=== PATIENT | male | born 1940 | race Caucasian/White ===

== ENCOUNTER 2016-08-20 01:21 | Day surgery (SDC) | payer MEDICARE, OTHER ==
[2016-08-20] VITALS (14 sets, daily range): BP systolic 113–145; BP diastolic 66–91; PULSE 60–62; RESP 10–20; O2SAT 93–96
[~2016-08-20] VITALS: Ht 180.3 cm; Wt 110.5 kg
[~2016-08-20 01:21] MED LIST: ASPI325T32 PO; CYAN1TAB52 SL; FEXO-106 PO; FLUT30CR10 TOP; FLUT9.9S NS; FURO-129 PO; LIP40 PO; LISI1TAB7 PO; MULT1CAP33 PO; NITR0.4T SL; POTA10TA12 PO
[2016-08-20] MEDS ORDERED: Bupivacaine-MPF 0.5% 30 mL Inj ONE (09:08)
[2016-08-20] MEDS ORDERED: 0.9% Sodium Chloride 250 ML ONE (09:08)
[2016-08-20] MEDS ORDERED: Heparin 5,000 Units/500 mL NS Premix IV ONE (09:08)
[2016-08-20 09:19] LABS: BASOPHILS % (AUTO) 0.3 % (0-3); EOSINOPHILS % (AUTO) 2.2 % (0-5); MONOCYTES % (AUTO) 11.8 % (4-12); Mean Corpuscular Hemoglobin 32.8 pg (27.0-35.0); Mean Corpuscular Volume 97.2 fL (81-100); NEUTROPHILS % (AUTO) 60.4 % (40-74); Platelet Count 211 bil/L (150-400)
[2016-08-20 09:35] LABS: INR 0.94 ratio
[2016-08-20] MEDS ORDERED: MECO5000 PO (09:44)
[2016-08-20] MEDS ORDERED: ERGO2000 PO (09:44)
[2016-08-20] MEDS ORDERED: [UNRECOGNIZED DRUG - OTHER] NASAL (09:46)
[2016-08-20] MEDS ORDERED: CeFAZolin 2 Gm/50 mL D5W Duplex Bag IV ONE (09:56)
[2016-08-20] MEDS ORDERED: fentaNYL-PF 50 mCg/mL 2 mL Inj ONE ×2 (10:41→11:15)
[2016-08-20] MEDS ORDERED: 0.9% Sodium Chloride 1,000 ML IV SCH (12:49)
[2016-08-20] MEDS ORDERED: Ondansetron 2 mg/mL 2 mL Inj IVPUSH PRN (12:50)
[2016-08-20] MEDS ORDERED: HYDROcodone-APAP 5-325 mg Tablet PO PRN (12:50)
--- NOTE | 2016-08-20 14:42 | DRSVH ---
PROCEDURE: X-RAY CHEST ONE VIEW, PORTABLE ([id number]) INDICATIONS: For new leads placed TECHNIQUE: One view of the chest was acquired. COMPARISON: [facility], , CHEST 2 VIEW, 12/13/2015, 15:22. FINDINGS: Surgical changes and devices: There has been interval placement of pacemaker. Lungs and pleura: No pleural effusions or pneumothorax. Lungs are clear. Mediastinum: Mediastinal contours appear normal. Heart size is normal. Bones and chest wall: No suspicious bony lesions. Overlying soft tissues appear unremarkable. IMPRESSION: No acute pulmonary process. Dictated by: Latasha Umaña M.D. on 08/20/2016 at 14:40 Approved by: Latasha Umaña M.D. on 08/20/2016 at 14:40
--- NOTE | 2016-08-20 15:13 | NUR ---
Pt complains of heartburn, says he gets this occassionally and "waits it out". Pt had heart cath last Apr. per report he has mild disease. Will ask Dr Lares for maalox or pepcid if heartburn does not imminently resolve. Report to Angelia springer R.N. Ice pack in place.
[2016-08-20] MEDS ORDERED: Alum-Mag Hydrox-Simeth 30 mL Suspension ONE (15:40)
[2016-08-20] MEDS: 0.9% Sodium Chloride 1,000 ML IV SCH ×2 (16:00→16:01)
--- NOTE | 2016-08-20 16:28 | NUR ---
Admit [facility] Pt arrived on [facility] at approx 1615 accompanied by family with all belongings. Pt is SL, on RA, and SBA until we see him ambulate. VS stable and A-paced 61 per technical specialist. Pt is reporting ongoing chest pain 12/18 that he was given Maalox approx 45 mins ago, Dr Lares is aware. Continuing to monitor.
--- NOTE | 2016-08-20 16:40 | NUR ---
Transferred up to room 3025 post pacemaker placement today by Dr Lares. Recovery is completed is TEODORA - 12 lead and PCXR. Prior to transfer patient complained of arm pain and was given plain Tylenol by admitting RN Shi Branch. Patient mentioned he was having anterior upper gastric discomfort placing it at a 2/10 - Dr Lares informed and OK to receive Mylanta 30cc. Following transfer to the floor patient felt the upper gastric discomfort >5/10 from the 09/20. Dr Lares notified - Limited echo ordered. RN for room 3025 was notified regarding order that was ordered by [facility] attendance secretary - requested limited echo now.
[2016-08-20] MEDS: CeFAZolin Inj 1 GM in IV Premix 1 EACH IV SCH (18:00)
--- NOTE | 2016-08-20 18:14 | DRSVH ---
[facility] [address] [place] [address] Echocardiogram Report Name: EVELINE ARELLANOudgaudencio Alon e: 08/20/2016 Height: 71 in Hospital Exam Location: [facility] Weight: 244 lb Gender: Other BSA: 2.3 m2 : 1940 Age: 76 yrs BP: 145/85 mm Hg Reason For Study: EVAL FOR POSSIBLE SHELLIE. EFF. CHEST PAIN Ordering Physician: Dr. Adalid Lares Performed By: Kori Sinclair Referring Physician: Dr. Perfecto Coronado Interpretation Summary 1. Grossly normal left ventricular size and systolic function. 2. Normal right ventricular systolic function. A pacer lead is appreciated in the right ventricle 3. No pericardial effusion is appreciated. Procedure: This is a limited echocardiogram to evaluate for possible pericardial effusion s/p pacemaker implant and chest pain. The study quality was technically adequate. Left Ventricle: The left ventricular ejection fraction is grossly normal. Right Ventricle: The right ventricle is normal in size and function. There is a pacemaker lead in the right ventricle. Aortic Valve: The aortic valve is trileaflet. The aortic valve opens well. Pericardium/ Pleura There is no pericardial effusion. Reading Physician:06:13 PM
--- NOTE | 2016-08-20 23:33 | OP ---
[address] [address] OPERATIVE REPORT PATIENT: EVELINE ARELLANO : 1940 MR#: [id number] ADMIT: 08/20/2016 JOB ID: [id number] DATE OF SURGERY: 08/20/2016 PREOPERATIVE DIAGNOSIS(ES): Sick sinus syndrome. POSTOPERATIVE DIAGNOSIS(ES): Sick sinus syndrome. PROCEDURES PERFORMED: 1. Dual-chamber pacemaker implantation. 2. Right upper extremity venogram. 3. Fluoroscopy. SURGEON: Diaz Lares MD [employer]ING [employer] FILLING MACHINE OPERATOR: Elma Danielle MD, intervention cardiology attending. ANESTHESIA: Bolus dosing of Versed and fentanyl were utilized for an appropriate level of sedation. IMPLANTED DEVICES: 1. [employer] pulse generator, model KF1948, serial number [id number]. 2. Right atrial lead, [employer] 2088CC, 46 cm, serial number [id number]. 3. RV lead [employer] 2088CC, 52 cm, serial number [id number]. INDICATIONS: The patient is a pleasant 76-year-old man with preserved LV function and clear sick sinus syndrome with near syncope and pauses greater than three seconds. He also has chronotropic incompetence. After discussion of risks and benefits of pacemaker implantation, he opted to proceed. PROCEDURAL DESCRIPTION: Following informed consent, the patient was taken to the EP laboratory in a fasting nonsedated state, where he was prepped and draped in the usual sterile fashion. The right deltopectoral region was infiltrated with 40 cc of a 50/50 mixture of bupivacaine and lidocaine. Once adequate anesthesia had been achieved, a 3-cm incision was performed, 2 cm middle medial to the right deltopectoral groove. Dissection was carried down to the pectoralis fascia, and a pocket was then fashioned using a combination of electrocautery and blunt dissection. Once adequate hemostasis had been achieved, a right upper extremity venogram was performed under venographic guidance. The right axillary vein was cannulated over the first rib twice with a micropuncture needle to deploy two 0.035 mm J guidewires. Over the first of these, a 6-Khmer tear-away sheath was advanced. Once the guidewire was removed, an active fixation lead was advanced to the RV outflow tract, ultimately to the RV apex. The lead was affixed in position. Using its associated active fixation screw, the lead was connected to the external analyzer and demonstrated appropriately sensed R waves, impedance, capture threshold. Lead was checked to 10 V, and there was no evidence of diaphragmatic stimulation. Attention was now paid to placement of the right atrial lead. Over the other previously deployed J guidewire, another 6-Khmer tear-away sheath was advanced. Once the guidewire was removed, an active fixation lead was advanced to the right atrial appendage. Mapping was undertaken in the appendage extensively with overall poor threshold. The lead was placed in the low lateral right atrium. It was affixed in position using associated fixation screw. The lead was connected to the external analyzer and demonstrated appropriately sensed P waves, impedance, capture threshold. Lead was checked to 10 V, and there was no evidence of diaphragmatic stimulation. Once the position and redundancy of both leads had been confirmed in multiple fluoroscopic views, the leads were anchored to the prepectoralis fascia. Using their associated anchoring sleeves and Ethibond sutures, the pocket was copiously then irrigated with warm saline solution. The leads were connected to a generator. The generator was placed in the pocket. It was affixed to the floor of the pocket using 1-0 Ti.Cron suture. The incision was then closed with running layers of absorbable suture. The wound was dressed with skin adhesive and a small dressing. At the end of the procedure, the needle, sponge, instrument counts were all correct. COMPLICATIONS: None. ESTIMATED BLOOD LOSS: Negligible. DEVICE MEASURED DATA: 1. showed a 5 mV, 560 ohms, 0.75 V at 0.4 msec. 2. lead 8.2 mV, 530 ohms, 0.5 V at 0.4 msec. FINAL PROGRAM PARAMETERS: DDDR 60-130 beats per minute. IMPRESSION: Successful dual-chamber pacemaker implantation. PLAN: 1. Stat portable chest x-ray. 2. PA and lateral chest x-ray in the morning. 3. Device interrogation. 4. IV Ancef through tomorrow, then Keflex times seven days . 5. Wound check in one week. ATTENDING STATEMENT: Diaz Lares MD, electrophysiology MD, electrophysiology attending, was present for and supervised/performed all aspects of this procedure.
[2016-08-21 00:20] VITALS: BP 168/90; PULSE 70; RESP 18; O2SAT 96
[2016-08-21] MEDS: CeFAZolin Inj 1 GM in IV Premix 1 EACH IV SCH (01:40)
[2016-08-21 05:09] VITALS: BP 138/83; PULSE 60; RESP 18; O2SAT 96
[2016-08-21] MEDS ORDERED: CeFAZolin 2 Gm/50 mL D5W IV Premix IV ONE (06:00)
--- NOTE | 2016-08-21 06:05 | NUR ---
Pain/NOC Shift: Pt c/o generalized surgical site pain 11/18, medication administered; effective. Pt denied SOB. Slept most of the night, pleasant and cooperative with care.
--- NOTE | 2016-08-21 06:40 | NUR ---
off floor for procedure.
--- NOTE | 2016-08-21 06:50 | NUR ---
Pt back on floor
--- NOTE | 2016-08-21 08:04 | DRSVH ---
PROCEDURE: X-RAY CHEST, TWO VIEWS ([id number]) INDICATIONS: For new lead placement TECHNIQUE: 2 views of the chest were acquired. COMPARISON: [facility], CR, XR CHEST 1VW (PORTABLE), 08/20/2016, 12:59. FINDINGS: Surgical changes and devices: Dual chamber cardiac pacer stable in appearance. Lungs and pleura: No pleural effusions or pneumothorax. Lungs are clear. Mediastinum: Mediastinal contours are normal. Heart size is normal. Bones and chest wall: No suspicious bony abnormalities. Soft tissues appear unremarkable. IMPRESSION: No acute cardiopulmonary disease process. Dictated by: Nora Tan MD, PhD on 08/21/2016 at 8:02 Approved by: Nora Tan MD, PhD on 08/21/2016 at 8:02
[2016-08-21] MEDS ORDERED: Fluticasone 0.05% 15 Spray/2 Gm 16 Gm Nasal Spray NASAL SCH (08:30)
--- NOTE | 2016-08-21 10:05 | PCM.DIMED ---
Discharge Instructions Date of Service Aug 21, 2016 Dates of Hospitalization Discharge Diagnosis Discharge Diagnosis Sick Sinus Syndrome Chronotropic Incompetence Sleep Apnea Hypertension Diet Heart Healthy Activity Other (Keep incision dry one day. Do not extend right elbow high above right shoulder for one month. Do not lift, push or pull more than 10 lbs with the right arm for 1 month) Call your provider Fever or Chills, Bleeding, Excessive diarrhea Patient Instructions Follow-up in: 1 week Mid-level Provider (F9): Robbin Aponte PA-C Follow-up with Mid-level in: 6 weeks Robbin Aponte PA-C Aug 21, 2016 10:05
[2016-08-21] MEDS ORDERED: CEPH500C PO (10:07)
--- NOTE | 2016-08-21 11:02 | NUR ---
Discharge Patient discharge to home at 1102h. Charge nurse explained to patient new medication, when next medications are due, and discharge instructions. Patient verbalized understanding. Dc'd IV intact by charge nurse. Dc'd telemetry. vitals stable. Patient left floor on own two feet accompanied by family with no signs of distress.
--- NOTE | 2016-08-21 11:20 | NUR ---
Social Work-screening/discharge: SW attempted to see pt, but updated by RN that pt has been discharged. Pt has been up indepedent in his room. No discharge needs identified. All updated and agreeable to plan. RISHI Rdz
--- NOTE | 2016-08-21 11:42 | DIS ---
[address] [address] DISCHARGE SUMMARY PATIENT: EVELINE ARELLANO : 1940 MR#: [id number] ADMIT: 08/20/2016 JOB ID: [id number] DIS: 08/21/2016 REASON FOR ADMISSION: Pacemaker implant. CHIEF COMPLAINT: Lightheadedness and exertional dyspnea. BRIEF HISTORY: The patient is a pleasant 76-year-old man with preserved biventricular function and nonobstructive CAD who has significant bradycardia. He complains of exertional dyspnea with mild to moderate exertion and some chest pain. He also gets lightheaded with exertion. He recently wore a quality assurance monitor that revealed sinus rhythm, with a minimum rate of 29 beats per minute, average of 50 and maximum rates only in the 80s. He is off any rate-slowing medication or AV node medications, and he has also been observed to have sinus pauses up to 4 seconds. He was advised of the benefits of a pacemaker to maintain normal rhythm and wished to proceed with that. COURSE IN HOSPITAL: The patient was brought in through the [facility] and taken to the catheterization laboratory, where he underwent the pacemaker implant procedure without incident. He was then taken back to the [facility] for recovery from sedation and then transferred up to the third floor [facility] for overnight monitoring. In the morning he felt well and had no complaints other than minor discomfort at the pacemaker site. The site is closed and dry. There is no significant hematoma. Chest x-ray shows good lead positions and no pneumothorax. Pacemaker evaluation shows excellent capture and sensing thresholds. He was observed to have a junctional rhythm in the 60s and 70s and so, the pacemaker rate was increased to 70. Also, he has retrograde conduction and was having pacemaker-mediated tachycardia, so the PVARP was extended to 350 msec. He felt well for discharge home. He was not having any complaints of lightheadedness or any difficulty walking. DISPOSITION: The patient was discharged home in good condition with a followup appointment at the [facility] office in one week. He was asked to not extend his right arm high above his right shoulder for one month and not to lift, push, or pull more than 10 pounds with the right arm. He has a right-sided implant because he likes to shoot a rifle against his left shoulder. He will follow a heart healthy diet and take medications as prescribed. DISCHARGE MEDICATIONS: 1. Cephalexin 500 mg b.i.d. 2. Aspirin 325 mg daily. 3. Atorvastatin 40 mg daily. 4. Vitamin D 2000 units daily. 5. Fluticasone spray 2 sprays nasally daily. 6. Lisinopril/hydrochlorothiazide 10 mg/12.5 mg 1 tablet daily. 7. Vitamin B12, 2 tabs daily for a total of 10,000 mcg. 8. Multivitamin 1 daily. 9. Nitroglycerin sublingual 0.4 mg q.5 minutes p.r.n. chest pain. 10. If he uses oxygen, 2 L per nasal cannula at home during sleep. FINAL DIAGNOSES: 1. Sick sinus syndrome. 2. Chronotropic incompetence. 3. Hypertension. 4. Sleep apnea.
== END 2016-08-21 11:02 | disposition home or self-care (01) ==
LOC: SOUO 01:21 → MPC 16:00 → UNDOADMIN 16:00 → SOUO 08-21 11:02
PROVIDERS: ATTEND Internal Medicine Cardiovascular Disease
DX: I49.5 Sick sinus syndrome (principal); I45.89 Other specified conduction disorders; I10 Essential (primary) hypertension; G47.30 Sleep apnea, unspecified; E78.5 Hyperlipidemia, unspecified; Z79.82 Long term (current) use of aspirin
CPT/HCPCS: 33208; 36415; 71010; 71020; 80048; 85025; 85610; 93005; 99152; 99153; C1769; C1785; C1892; C1898; C8924; J0690; J1644; J2250; J3010; J7050; Q9967